=== PATIENT | female | born 2000 | race Two or more races ===

== ENCOUNTER 2019-10-19 22:21 | Emergency (ER) | payer OTHER ==
[2019-10-19] MEDS ORDERED: METOCLOPRAMIDE HCL INJ/PF 10 MG/2 ML SDV IV ONE (22:49)
--- NOTE | 2019-10-19 22:51 | ER Document Report ---
ED Medical Screen (RME) - General Chief Complaint: Nausea/Vomiting Stated Complaint: HEADACHE/DIZZINESS Time Seen by Provider: 10/19/19 22:40 Notes: Patient is a 18-year-old female who presents to the emergency department with a chief complaint of headache. Patient states that her headache started 2 days ago. She was at [employer] and she was on a roller coaster and heat she hit her head very hard. She has been vomiting since then. Patient states that everything that she tries to eat ends up coming up. Is a history of migraines, but states that this does not feel like a typical migraine. Exam: Normal strength in bilateral upper and lower extremities. I have greeted and performed a rapid initial assessment of this patient. A comprehensive ED assessment and evaluation of the patient, analysis of test results and completion of medical decision making process will be conducted by an additional ED providers. Physical Exam - Vital signs Vitals: Temp Pulse Resp BP Pulse Ox 98.4 F 86 20 133/78 H 100 10/19/19 22:32 10/19/19 22:32 10/19/19 22:32 10/19/19 22:32 10/19/19 22:32 Course - Vital Signs Vital signs: Temp Pulse Resp BP Pulse Ox 98.4 F 86 20 133/78 H 100 10/19/19 22:32 10/19/19 22:32 10/19/19 22:32 10/19/19 22:32 10/19/19 22:32
--- NOTE | 2019-10-19 23:57 | RADIOLOGY REPORT (SQ) ---
EXAM DESCRIPTION: CT HEAD WITHOUT IV CONTRAST COMPLETED DATE/TME: 10/19/2019 22:48 CLINICAL HISTORY: 18 years, Female, vomiting; hit head COMPARISON: None. TECHNIQUE: Noncontrast CT of the head was performed. Coronal and sagittal reformations were acquired. Images stored on PACS. All CT scanners at this facility use dose modulation, iterative reconstruction, and/or weight based dosing when appropriate to reduce radiation dose to as low as reasonably achievable (ALARA). [facility]: Dose Right [facility]: CareDose [facility]: Dose Right [facility]: Teradose 4D [facility]: [employer] LIMITATIONS: None. FINDINGS: Brain parenchyma is normal in attenuation. No acute intracranial hemorrhage, mass effect, or extra-axial fluid is seen. The ventricles, sulci, and basilar cisterns are normal in size and configuration. Globes and orbits are normal. Paranasal sinuses and mastoid air cells are clear. There are no depressed skull fractures. IMPRESSION: No acute intracranial abnormality. TECHNICAL DOCUMENTATION: Quality ID # 436: Final reports with documentation of one or more dose reduction techniques (e.g., Automated exposure control, adjustment of the mA and/or kV according to patient size, use of iterative reconstruction technique) copyright 2010 [employer]- All Rights Reserved
[2019-10-20] MEDS ORDERED: NORMAL SALINE 1000 ML 1,000 ML IV PRN (01:14)
--- NOTE | 2019-10-20 01:28 | ER Document Report ---
ED General - General Chief Complaint: Nausea/Vomiting Stated Complaint: HEADACHE/DIZZINESS Time Seen by Provider: 10/19/19 22:40 - HPI Notes: Patient is a 18-year-old female presents emergency department for evaluation of headache, nausea, vomiting. She states her headache started on Saturday. It started in the afternoon. They were driving back from [place]. She was on a roller coaster the day before, hit her head multiple times on the harness. She did not have a headache immediately after that, did not have loss of consciousness, but thought that might be responsible for her headache. She is had some nausea and emesis today. Is all been the food that she is eating and drinking. She denies any visual changes. Moving her arms and legs without difficulty. Is speaking and swallowing without difficulty. She states her last mental period was September 23. She states her headache is on the top of her head, she described it as a constant ache that she rates a 3 out of 5. - Related Data Home Medications: None Past Medical History - General Information source: Patient, Relative - Social History Smoking Status: Never Smoker Family History: Reviewed & Not Pertinent Patient has suicidal ideation: No Patient has homicidal ideation: No Review of Systems - Review of Systems Constitutional: No symptoms reported EENT: No symptoms reported Cardiovascular: No symptoms reported Respiratory: No symptoms reported Gastrointestinal: See HPI Genitourinary: No symptoms reported Female Genitourinary: No symptoms reported Musculoskeletal: No symptoms reported Skin: No symptoms reported Neurological/Psychological: No symptoms reported Physical Exam - Vital signs Vitals: Temp Pulse Resp BP Pulse Ox 98.4 F 86 20 133/78 H 100 10/19/19 22:32 10/19/19 22:32 10/19/19 22:32 10/19/19 22:32 10/19/19 22:32 - Notes Notes: Vital signs reviewed, please refer to chart. Head is normocephalic, atraumatic. Pupils equal round, reactive to light. Neck is supple without meningismus. Heart is regular rate and rhythm. Lungs are clear to auscultation bilaterally. Abdomen is soft, nontender, normoactive bowel sounds throughout. Extremities without cyanosis, clubbing. Posterior calves are nontender. Peripheral pulses are equal. Skin is warm and dry. Patient is awake, alert, oriented x3. Cranial nerves II - XII are grossly intact without focal neurological deficits. Strength is plus 5 out of 5 bilateral upper and lower extremities. Sensation is intact. Reflexes symmetrical. Intact [id number], rapid alternating movements, [id number]. Course - Re-evaluation Re-evalutation: 10/20/19 01:26 Patient presents emergency department for evaluation. She had CT scan of the head ordered through triage, as well as urine beta. Urine beta was found to be positive. Patient was notified. Her CT scan is unremarkable. My suspicion is that all of her symptoms are secondary to her . She was given IV fluids. Urinalysis is pending. We will continue to monitor. 10/20/19 02:23 Patient is feeling significantly improved after IV fluids. Her urinalysis revealed no signs of bleeding or infection. Patient was told to start taking a vitamin, follow-up with primary care/OB. She voiced understanding. Tylenol at home as needed for pain, be sure to take only as directed. She is to return to the ED with worsening or new concerning symptoms of any sort. - Vital Signs Vital signs: Temp Pulse Resp BP Pulse Ox 98.4 F 86 20 133/78 H 100 10/19/19 22:32 10/19/19 22:32 10/19/19 22:32 10/19/19 22:32 10/19/19 22:32 - Laboratory Laboratory results interpreted by me: 10/19/19 10/19/19 23:12 23:12 Urine Protein 100 H Urine Urobilinogen 2.0 H Urine HCG, Qual POSITIVE H Discharge - Discharge Clinical Impression: Nausea and vomiting in Headache Qualifiers: Headache type: unspecified Headache chronicity pattern: acute headache Intractability: not intractable Qualified Code(s): R51 - Headache Condition: Stable Disposition: HOME, SELF-CARE Instructions: Intravenous (IV) Fluids ([facility]), Vomiting ([facility]), ([facility]) Additional Instructions: Stay hydrated with small, frequent sips of fluids. Take [id number] Tylenol as directed if needed for pain. Follow-up with primary care OB in 1 to 2 weeks. Return to the ED with worsening or new concerning symptoms of any sort.
[2019-10-20 01:46] LABS: APPEARANCE,URINE CLEAR; BILIRUBIN,URINE NEGATIVE (NEGATIVE); COLOR,URINE YELLOW; GLUCOSE, URINE NEGATIVE (NEGATIVE); KETONES,URINE NEGATIVE (NEGATIVE); LEUKOCYTE ESTERASE,URINE NEGATIVE (NEGATIVE); NITRITE,URINE NEGATIVE (NEGATIVE); PROTEIN,URINE 100 mg/dL (NEGATIVE); URINE SPECIFIC GRAVITY 1.026
[2019-10-20 03:24] VITALS: BP 104/57
== END 2019-10-20 03:00 | disposition home or self-care (01) ==
LOC: ER 22:21
DX: O21.9 Vomiting of pregnancy, unspecified (principal); O26.899 Other specified pregnancy related conditions, unspecified trimester; R51 Headache; R42 Dizziness and giddiness; Z3A.00 Weeks of gestation of pregnancy not specified
CPT/HCPCS: 99284; 96361; 96374; 81025; 81001; 70450; J2765; J7030